=== PATIENT | female | born 1950 | race Caucasian/White ===

== ENCOUNTER 2021-08-03 12:49 | Outpatient (RCR) | payer MEDICARE, OTHER, SELFPAY | END 2021-08-09 13:36 | disposition home or self-care (01) | LOC: HO.WCC 12:49 | PROVIDERS: PCP Internal Medicine; Referring Provider Physician Assistant; Visit Provider Surgery | DX: M31.6 Other giant cell arteritis (principal); I95.9 Hypotension, unspecified; I50.9 Heart failure, unspecified; Z79.52 Long term (current) use of systemic steroids | CPT/HCPCS: 99212 ==

== ENCOUNTER 2022-06-13 10:38 | Outpatient (RCR) | payer MEDICARE, OTHER, SELFPAY | END 2022-07-20 14:17 | disposition home or self-care (01) | LOC: HO.WCC 10:38 | PROVIDERS: PCP Internal Medicine; Visit Provider Physician Assistant | DX: L97.822 Non-pressure chronic ulcer of other part of left lower leg with fat layer exposed (principal); I87.2 Venous insufficiency (chronic) (peripheral); M31.5 Giant cell arteritis with polymyalgia rheumatica; I50.9 Heart failure, unspecified; I42.4 Endocardial fibroelastosis | CPT/HCPCS: 11042; 97597; 99212; 99213 ==

== ENCOUNTER 2023-05-21 07:58 | Outpatient (RCR) | payer MEDICARE, OTHER, SELFPAY | END 2023-05-30 14:26 | disposition home or self-care (01) | LOC: HO.WCC 07:58 | PROVIDERS: PCP Internal Medicine; Visit Provider Physician Assistant | DX: S81.811D Laceration without foreign body, right lower leg, subsequent encounter (principal); M31.5 Giant cell arteritis with polymyalgia rheumatica; I50.9 Heart failure, unspecified; X58.XXXD Exposure to other specified factors, subsequent encounter | CPT/HCPCS: 99213 ==